=== PATIENT | male | born 1990 | race Caucasian/White ===

== ENCOUNTER 2017-07-16 01:20 | Emergency (ER) ==
[2017-07-16 01:20] VITALS: BMI 23.3
[2017-07-16] MEDS ORDERED: ZOFRAN 4 MG/2 ML IVP STA (01:22)
[2017-07-16] MEDS ORDERED: TORADOL IVP STA (01:22)
[2017-07-16] MEDS ORDERED: SODIUM CHLORIDE 1,000 ML IV STA (01:22)
[2017-07-16 01:31] LABS: BASOPHILS % (AUTO) 0.3 % (0.0-3.0); EOSINOPHILS # (AUTO) 0.2 K/ul (0.0-0.7); EOSINOPHILS % (AUTO) 2.1 % (0.0-7.0); HEMATOCRIT 41.1 % (42.0-52.0); HEMOGLOBIN 15.1 g/dl (14.0-18.0); IMMATURE GRANULOCYTE % (AUTO) 0.3 % (0.0-5.0); LYMPHOCYTES # (AUTO) 4.3 K/uL (0.60-3.4); LYMPHOCYTES % (AUTO) 47.1 (10.0-50.0); MEAN CORPUSCULAR HEMOGLOBIN 31.1 pg (27.0-31.0); MEAN CORPUSCULAR HGB CONC 36.7 (31.8-35.4); MEAN CORPUSCULAR VOLUME 84.6 fl (80.0-94.0); MONOCYTES # (AUTO) 0.8 K/uL (0.4-2.0); MONOCYTES % (AUTO) 9.3 (0-10); NEUTROPHILS # (AUTO) 3.7 K/ul (2.0-6.9); NEUTROPHILS % (AUTO) 40.9; PLATELET COUNT 257 10^3/uL (140-440); RED BLOOD COUNT 4.86 10^6/ul (4.70-6.10); WHITE BLOOD COUNT 9.04 K/ul (4.2-10.2)
[2017-07-16] MEDS ORDERED: PHENERGAN 25 MG/ML VIAL IM STA (01:35)
[2017-07-16] MEDS ORDERED: DEMEROL 50 MG/ML SYRINGE IM STA (01:35)
--- NOTE | 2017-07-16 01:39 | ED.PDOC ---
General ED Provider: Dr. SIGIFREDO RIVER Chief Complaint: Abdominal Pain Stated Complaint: Patient is a 26 year old male who comes to the Er with complains of lower abdominal pain which he has had off and of for several months. He even went to [facility] but has not had any answers. Has had Gi work ups including CTs , US, Hida scan and scope. Has been taking oxycodone which has not helped. Pain is very severe. Has appt in [place] with GI specialist Dr. Davila scheduled for 08/02/17. He also has C diff and is being treated for it Time Seen by Physician: 01:35 Mode of Arrival: Walk-In Information Source: Patient, Family Exam Limitations: No limitations Primary Care Provider: JOYCE COLEMAN Nursing and Triage Documentation Reviewed and Agree: Yes GI Complaint Exam - Abdominal Pain Complaint/Exam Onset: Sudden Duration: 1 hour Symptoms Are: Still present Timing: Constant Initial Severity: Severe Current Severity: Severe Location of Pain: Suprapubic Radiates To: Denies: Chest, Back, Flank, LLQ, RLQ, Inguinal Character: Reports: Aching, Throbbing Aggravating: Reports: None Alleviating: Reports: None Associated Signs and Symptoms: Denies: Diaphoresis, Fever, Cough, Chest pain, Dizziness, Back pain, Constipation, Blood in stool, Dysuria, Urinary frequency, Decreased urine output, Decreased appetite, Discharge, Nausea, Vomiting, Diarrhea, Decreased activity AAA Risk Factors: Reports: None Cardiac Risk Factors: Reports: None Testicular Torsion Risk Factors: Reports: None Surgical Obstruction Risk Factors: Reports: None Related Surgical History: Reports: None Differential Diagnoses: Irritable Bowel Syndrome, Other (inflamatory bowel disease ) - Vomiting/Diarrhea Complaint/Exam Onset/Duration: 1 hour ago Review of Systems - Review Of Systems Constitutional: Reports: No symptoms Eyes: Reports: No symptoms Ears, Nose, Mouth, Throat: Reports: No symptoms Respiratory: Reports: No symptoms Cardiac: Reports: No symptoms GI: Reports: Abdominal pain : Reports: No symptoms Musculoskeletal: Reports: No symptoms Skin: Reports: No symptoms Neurological: Reports: Anxiety Endocrine: Reports: No symptoms Hematologic/Lymphatic: Reports: No symptoms All Other Systems: Reviewed and Negative Past Medical History - Past Medical History Previously Healthy: Yes Endocrine: Reports: None Cardiovascular: Reports: None Respiratory: Reports: None Hematological: Reports: None Gastrointestinal: Reports: Other (Chronic abdominal pain, C diff ) Genitourinary: Reports: None Neuro/Psych: Reports: None Musculoskeletal: Reports: None Cancer: Reports: None - Surgical History General Surgical History: Reports: Orthopedic (right hand surg - pinned - now removed at 22 y/o) - Family History Family History: Reports: None - Social History Smoking Status: Former smoker Hx Substance Use: No Alcohol Screening: None Physical Exam - Physical Exam Appearance: Ill-appearing Ill-appearing: Moderate Pain Distress: Severe Eyes: NAT, EOMI, Conjunctiva clear ENT: Ears normal, Nose normal, Oropharynx normal Neck: Supple Respiratory: Airway patent, Breath sounds clear, Breath sounds equal, Respirations nonlabored Cardiovascular: RRR, Pulses normal, No rub, No murmur GI/: Soft, Tender (suprapubic area.) Musculoskeletal: Normal strength, ROM intact, No edema, No calf tenderness Skin: Warm, Dry, Normal color Neurological: Sensation intact, Motor intact, Cranial nerves intact, Alert, Oriented Psychiatric: Anxious Critical Care Note - Critical Care Note Total Time (mins): 30 Course - Course Hematology/Chemistry: 07/16/17 01:30 07/16/17 01:30 Orders, Labs, Meds: Lab Review 07/16/17 01:30 WBC 9.04 RBC 4.86 Hgb 15.1 Hct 41.1 L MCV 84.6 MCH 31.1 H MCHC 36.7 H RDW Coeff of Mary 11.9 Plt Count 257 Immature Gran % (Auto) 0.3 Neut % (Auto) 40.9 Lymph % (Auto) 47.1 [place] % (Auto) 9.3 Eos % (Auto) 2.1 Baso % (Auto) 0.3 Immature Gran # (Auto) 0.0 Neut # 3.7 Lymph # 4.3 H [place] # 0.8 Eos # 0.2 Baso # 0.0 Sodium 141 Potassium 3.7 Chloride 103 Carbon Dioxide 29 Anion Gap 12.7 BUN 12 Creatinine 0.83 Estimated GFR (MDRD) 113.00 BUN/Creatinine Ratio 14.45 Glucose 87 Calcium 10.1 Total Bilirubin 0.86 AST 22 ALT 33 Alkaline Phosphatase 62 Total Protein 7.4 Albumin 4.6 Globulin 2.8 Albumin/Globulin Ratio 1.64 Amylase 63 Lipase 18 Orders Category Date Time Status ED IV/MEDIPORT/POWERPORT .ONCE EMERGENCY 07/16/17 01:21 Active AMYLASE Stat LAB 07/16/17 01:30 Completed CBC W/ AUTO DIFF Stat LAB 07/16/17 01:30 Completed COMPREHENSIVE METABOLIC PANEL Stat LAB 07/16/17 01:30 Completed LIPASE Stat LAB 07/16/17 01:30 Completed 0.9 % Sodium Chloride [Saline Flush] MEDS 07/16/17 01:22 Discontinued 1 syr IVF PRN PRN Ketorolac Tromethamine [Toradol] MEDS 07/16/17 01:22 Discontinued 30 mg IVP ONCE STA Morphine Sulfate [Morphine 4 mg/ml Syringe] MEDS 07/16/17 01:48 Discontinued 4 mg IVP ONCE STA Sodium Chloride 0.9% [Sodium Chloride] 1,000 ml MEDS 07/16/17 01:22 Discontinued IV BOLUS Medications Discontinued Medications Generic Name Dose Route Start Last Admin Trade Name Freq PRN Reason Stop Dose Admin Sodium Chloride 1,000 mls @ 1,000 mls/hr 07/16/17 01:22 07/16/17 02:08 Sodium Chloride IV 07/16/17 02:21 1,000 mls/hr BOLUS STA Administration Ketorolac Tromethamine 30 mg 07/16/17 01:22 07/16/17 02:08 Toradol IVP 07/16/17 01:23 30 mg ONCE STA Administration Morphine Sulfate 4 mg 07/16/17 01:48 07/16/17 02:08 Morphine 4 Mg/Ml Syringe IVP 07/16/17 01:49 4 mg ONCE STA Administration Sodium Chloride 1 syr 07/16/17 01:22 07/16/17 02:09 Saline Flush IVF 1 syr PRN PRN Administration To flush IV Vital Signs: Temp Pulse Resp BP Pulse Ox 07/16/17 01:22 97.2 F L 78 22 129/91 H 99 Departure - Departure Time of Disposition: 02:50 Disposition: HOME SELF-CARE Discharge Problem: Abdominal pain Instructions: Abdominal Pain (ED) Condition: Fair Pt referred to PMD for follow-up: Yes Additional Instructions: Keep Apt with GI doctor Prescriptions: Dicyclomine HCl [Bentyl] 10 mg PO TID PRN #20 capsule PRN Reason: Abdominal Pain Allergies/Adverse Reactions: Allergies hydrocodone bitartrate [From Lortab] Adverse Reaction (Verified 04/28/15 07:30) vancomycin Adverse Reaction (Verified 05/23/16 17:43) Rash Home Medications: Ambulatory Orders Cephalexin [Keflex] 500 mg PO TID #21 capsule 04/28/15 Hydrocodone/Acetaminophen [[place] 10-325 Tablet] 1 each PO Q6HR PRN #3 tablet 05/03 Ibuprofen 800 mg PO PRN 12/19/16 Dicyclomine HCl [Bentyl] 10 mg PO TID PRN #20 capsule 07/16/17 Disposition Discussed With: Patient
[2017-07-16 01:41] VITALS: BP 129/91; TEMP 97.2
[2017-07-16] MEDS ORDERED: MORPHINE 4 MG/ML SYRINGE IVP STA (01:48)
[2017-07-16 01:52] LABS: ALBUMIN 4.6 g/dL (3.4-5.0); ALBUMIN/GLOBULIN RATIO 1.64; ANION GAP 12.7; BILIRUBIN,TOTAL 0.86 mg/dL (0.00-1.20); BUN/CREATININE RATIO 14.45; CALCIUM 10.1 mg/dL (8.2-10.2); CREATININE 0.83 mg/dL (0.60-1.10); POTASSIUM 3.7 mmol/L (3.5-5.1); TOTAL PROTEIN 7.4 g/dL (6.4-8.2)
== END 2017-07-16 03:05 | disposition home or self-care (01) ==
LOC: ED 01:20
DX: R10.30 Lower abdominal pain, unspecified (principal)
CPT/HCPCS: 36415; 80053; 82150; 83690; 85025; 96360; 96375; 99284

== ENCOUNTER 2017-11-22 07:17 | Emergency (ER) ==
[2017-11-22 07:29] VITALS: BP 143/93; TEMP 97.8; BMI 25.7
[2017-11-22] MEDS ORDERED: TORADOL IVP STA (07:30)
[2017-11-22] MEDS ORDERED: ZOFRAN 4 MG/2 ML IVP STA (07:31)
--- NOTE | 2017-11-22 09:10 | CT ---
EXAM: CT abdomen pelvis with contrast HISTORY: Pain COMPARISON: None TECHNIQUE: CT abdomen pelvis performed with intravenous contrast. Coronal and sagittal reformatted images obtained. FINDINGS: Lung bases clear. No free air. No acute abnormalities of the bones. Unilateral pars def ect on the right at L5. No anterolisthesis. Heart normal in size. Liver appears normal. Gallbladd er appears normal. Pancreas appears normal. Spleen appears normal. Adrenals appear normal. Kidney s appear normal. Aorta normal in caliber. Bladder only mildly distended and poorly evaluated, gross ly unremarkable. Prostate normal in size. No lymphadenopathy or ascites. Stomach appears normal. No dilated loops small bowel. Appendix appears normal. Colon unremarkable., noting nondistended col on limits evaluation. No inflammatory stranding identified in the abdomen or pelvis. IMPRESSION: 1. No acute abnormality identified in the abdomen or pelvis. 2. Unilateral pars defect on the right at L5. No anterolisthesis
--- NOTE | 2017-11-22 09:49 | ED.PDOC ---
General ED Provider: Dr. IRMA ALMEIDA Chief Complaint: Abdominal Pain Stated Complaint: abdominal pain Time Seen by Physician: 07:30 Mode of Arrival: Walk-In Information Source: Patient Exam Limitations: No limitations Nursing and Triage Documentation Reviewed and Agree: Yes Reviewed sepsis parameters & appropriate labs ordered?: Yes (seen with vivi at all times ) System Inflammatory Response Syndrome: Not Applicable Sepsis Protocol: For patient's 13 years and over: Temp is 96.8 and below OR 101 and greater Pulse >90 BPM Resp >20/minute Acutely Altered Mental Status Are patient's symptoms suggestive of a new infection, such as: -Pneumonia -Skin, Soft Tissue -Endocarditis -UTI -Bone, Joint Infection -Implantable Device -Acute Abdominal Infection -Wound Infection -Meningitis -Blood Stream Catheter Infection -Unknown System Inflammatory Response Syndrome: Not Applicable GI Complaint Exam - Abdominal Pain Complaint/Exam Onset: Sudden Duration: today this is a chronic pain with occasional flare up . todays pain is same Symptoms Are: Still present Timing: Constant Initial Severity: Severe Current Severity: Severe Location of Pain: Diffuse Character: Reports: Cramping Aggravating: Reports: None Alleviating: Reports: Medication Associated Signs and Symptoms: Denies: Diaphoresis, Fever, Cough, Chest pain, Dizziness, Back pain, Constipation, Blood in stool, Dysuria, Urinary frequency, Decreased urine output, Decreased appetite, Discharge, Nausea, Vomiting, Diarrhea, Decreased activity Related History: Reports: Similar episode (chronic ) AAA Risk Factors: Reports: None Cardiac Risk Factors: Reports: None Testicular Torsion Risk Factors: Reports: None Surgical Obstruction Risk Factors: Reports: None Related Surgical History: Reports: None Abdominal Findings: Present: None (denied pain in the scrotum) Differential Diagnoses: Appendicitis, Bowel Obstruction, Constipation, Renal Colic, UTI Review of Systems - Review Of Systems Constitutional: Reports: No symptoms Eyes: Reports: No symptoms Ears, Nose, Mouth, Throat: Reports: No symptoms Respiratory: Reports: No symptoms Cardiac: Reports: No symptoms GI: Reports: Abdominal pain : Reports: No symptoms Musculoskeletal: Reports: No symptoms Skin: Reports: No symptoms Neurological: Reports: No symptoms Endocrine: Reports: No symptoms Hematologic/Lymphatic: Reports: No symptoms All Other Systems: Reviewed and Negative Past Medical History - Past Medical History Previously Healthy: Yes Endocrine: Reports: None Cardiovascular: Reports: None Respiratory: Reports: None Hematological: Reports: None Gastrointestinal: Reports: Other (Chronic abdominal pain, C diff ) Genitourinary: Reports: None Neuro/Psych: Reports: None Musculoskeletal: Reports: None Cancer: Reports: None - Surgical History General Surgical History: Reports: Orthopedic (right hand surg - pinned - now removed at 22 y/o) - Family History Family History: Reports: None - Social History Smoking Status: Current some day smoker Hx Substance Use: No Alcohol Screening: None - Immunizations Tetanus Shot up to Date: No Physical Exam - Physical Exam Appearance: Well-appearing, No pain distress, Well-nourished Eyes: NAT, EOMI, Conjunctiva clear ENT: Ears normal, Nose normal, Oropharynx normal Respiratory: Airway patent, Breath sounds clear, Breath sounds equal, Respirations nonlabored Cardiovascular: RRR, Pulses normal, No rub, No murmur GI/: Soft, Nontender, No masses, Bowel sounds normal, No Organomegaly Musculoskeletal: Normal strength, ROM intact, No edema, No calf tenderness Skin: Warm, Dry, Normal color Neurological: Sensation intact, Motor intact, Reflexes intact, Cranial nerves intact, Alert, Oriented Psychiatric: Affect appropriate, Mood appropriate Interpretation - Radiology Interpretation Radiology Interpretation By: Radiologist Radiology Results: No acute changes Critical Care Note - Critical Care Note Total Time (mins): 0 Course - Course Hematology/Chemistry: 11/22/17 07:40 11/22/17 07:40 Orders, Labs, Meds: Lab Review 11/22/17 11/22/17 11/22/17 07:40 07:40 07:40 WBC 7.46 RBC 5.10 Hgb 15.6 Hct 42.9 MCV 84.1 MCH 30.6 MCHC 36.4 H RDW Coeff of Mary 11.8 Plt Count 227 Immature Gran % (Auto) 0.3 Neut % (Auto) 51.9 Lymph % (Auto) 37.5 [place] % (Auto) 8.4 Eos % (Auto) 1.6 Baso % (Auto) 0.3 Immature Gran # (Auto) 0.0 Neut # 3.9 Lymph # 2.8 [place] # 0.6 Eos # 0.1 Baso # 0.0 Sodium 140 Potassium 4.1 Chloride 108 H Carbon Dioxide 22 Anion Gap 14.1 BUN 12 Creatinine 0.85 Estimated GFR (MDRD) 109.00 BUN/Creatinine Ratio 14.11 Glucose 97 Calcium 10.0 Total Bilirubin 1.1 AST 20 ALT 24 Alkaline Phosphatase 61 Total Protein 7.7 Albumin 4.5 Globulin 3.2 Albumin/Globulin Ratio 1.41 Amylase 64 Lipase 13 Urine Color Urine Clarity Urine pH Ur Specific [place] Urine Protein Urine Glucose (UA) Urine Ketones Urine Blood Urine Nitrite Urine Bilirubin Urine Urobilinogen Ur Leukocyte Esterase Urine Microscopic WBC Ur Squamous Epith Cells Urine Mucus 11/22/17 09:20 WBC RBC Hgb Hct MCV MCH MCHC RDW Coeff of Mary Plt Count Immature Gran % (Auto) Neut % (Auto) Lymph % (Auto) [place] % (Auto) Eos % (Auto) Baso % (Auto) Immature Gran # (Auto) Neut # Lymph # [place] # Eos # Baso # Sodium Potassium Chloride Carbon Dioxide Anion Gap BUN Creatinine Estimated GFR (MDRD) BUN/Creatinine Ratio Glucose Calcium Total Bilirubin AST ALT Alkaline Phosphatase Total Protein Albumin Globulin Albumin/Globulin Ratio Amylase Lipase Urine Color Yellow Urine Clarity Clear Urine pH 6.5 Ur Specific [place] 1.010 Urine Protein Trace Urine Glucose (UA) Negative Urine Ketones Negative Urine Blood Negative Urine Nitrite Negative Urine Bilirubin Negative Urine Urobilinogen 0.2 Ur Leukocyte Esterase Negative Urine Microscopic WBC 0-2 Ur Squamous Epith Cells 0-2 Urine Mucus Trace Orders Category Date Time Status NPO REMINDER: IMAGING ONCE CARE 11/22/17 07:32 Active AMYLASE Stat LAB 11/22/17 07:40 Completed CBC W/ AUTO DIFF Stat LAB 11/22/17 07:40 Completed COMPREHENSIVE METABOLIC PANEL Stat LAB 11/22/17 07:40 Completed LIPASE Stat LAB 11/22/17 07:40 Completed MOLECULAR FLU A/B Stat LAB 11/22/17 07:30 Uncollected MOLECULAR GROUP A STREP Stat LAB 11/22/17 07:55 Completed URINALYSIS C & S IF INDICATED Stat LAB 11/22/17 09:20 Completed Ketorolac Tromethamine [Toradol] MEDS 11/22/17 07:30 Discontinued 15 mg IVP ONCE STA Ondansetron HCl/Pf [Zofran 4 mg/2 ml] MEDS 11/22/17 07:31 Discontinued 4 [address] IVP ONCE STA CT ABDOMEN/PELVIS W CONTRAST Stat RADS 11/22/17 07:31 Completed Medications Discontinued Medications Generic Name Dose Route Start Last Admin Trade Name Freq PRN Reason Stop Dose Admin Ketorolac Tromethamine 15 mg 11/22/17 07:30 11/22/17 08:10 Toradol IVP 11/22/17 07:31 15 mg ONCE STA Administration Ondansetron HCl 4 mg 11/22/17 07:31 11/22/17 08:10 Zofran 4 Mg/2 Ml IVP 11/22/17 07:32 4 mg ONCE STA Administration Vital Signs: Temp Pulse Resp BP Pulse Ox 11/22/17 07:24 97.8 F 105 H 26 H 143/93 H 100 Departure - Departure Time of Disposition: 09:49 Disposition: HOME SELF-CARE Discharge Problem: Abdominal pain Instructions: Abdominal Pain (ED) Condition: Good Pt referred to PMD for follow-up: Yes Additional Instructions: Please call your Family Physician as soon as possible to schedule a follow-up appointment. Allergies/Adverse Reactions: Allergies hydrocodone bitartrate [From Lortab] Adverse Reaction (Verified 11/22/17 08:07) vancomycin Adverse Reaction (Verified 11/22/17 08:07) Rash Home Medications: Ambulatory Orders Dicyclomine HCl [Bentyl] 10 mg PO TID PRN #20 capsule 07/16/17 Disposition Discussed With: Patient
== END 2017-11-22 09:55 | disposition home or self-care (01) ==
LOC: ED 07:17
DX: R10.84 Generalized abdominal pain (principal); G89.29 Other chronic pain; F17.210 Nicotine dependence, cigarettes, uncomplicated
CPT/HCPCS: 36415; 80053; 81001; 82150; 83690; 85025; 87651; 96374; 96375; 99283

== ENCOUNTER 2017-12-06 09:00 | Outpatient (CLI) ==
--- NOTE | 2017-12-06 11:23 | DI ---
EXAM: Small-bowel follow-through HISTORY: Generalized abdominal pain COMPARISON: None TECHNIQUE: Small-bowel follow-through was performed FINDINGS: [employer] image demonstrates nonobstructive bowel gas pattern. Overhead images obtained at 0, 30, 60 minutes. Normal small bowel transit time with contrast reaching the colon at 60 minutes. No dilated loops small bowel. Small bowel mucosal pattern appears grossly normal. Terminal ileum appe ars grossly normal. IMPRESSION: Unremarkable small bowel follow-through.
== END 2017-12-06 09:01 | disposition home or self-care (01) ==
LOC: RAD 09:00
PROVIDERS: ATTEND Nurse Practitioner Family
DX: R10.84 Generalized abdominal pain (principal); R19.7 Diarrhea, unspecified